=== PATIENT | male | born 1940 | race Caucasian/White ===

== ENCOUNTER 2020-08-23 11:45 | Emergency (ER) | payer MEDICARE, OTHER ==
[~2020-08-23] VITALS: Ht 175.3 cm; Wt 98.2 kg
[~2020-08-23 11:45] MED LIST: FLEC50TA PO; FURO-150 PO; METO-395 PO
[2020-08-23] MEDS ORDERED: TETanus/Pertussis (Acell)/Diphther VAC/PF (Tdap-Adult) 0.5ml syringe IMVAC ONE (12:00)
[2020-08-23] MEDS ORDERED: LIDOcaine 1% w/epiNEPHrine 1:200,000 30ml vial IJ ONE (12:00)
--- NOTE | 2020-08-23 12:23 | NUR ---
PT BACK FROM CT VIA GURNEY. PT STILL HAS C-COLLAR ON.
--- NOTE | 2020-08-23 13:32 | NUR ---
PT TAKEN TO CT VIA GURNEY BY TECH.
--- NOTE | 2020-08-23 14:00 | NUR ---
DRESSING SECURED WITH NATASHA WRAP ACROSS FOREHEAD AFTER PROVIDER SUTURING COMPLETED.
[2020-08-23] MEDS ORDERED: acetaminophen 325mg tablet PO ONE (14:05)
--- NOTE | 2020-08-23 14:26 | NUR ---
RE-APPLY C-COLLAR ORDERED BY DR LEMOS.
[2020-08-23 14:28] VITALS: BP 168/88
[2020-08-23] MEDS ORDERED: ondansetron/PF 4mg/2ml inj IV ONE (15:15)
--- NOTE | 2020-08-23 15:19 | NUR ---
REPORT CALLED TO [facility] JANINE, MERCED BURTON. ALSO NOTIFIED PT'S BEAR THAT PT IS BEING TRANSFERRED: [phone]
[2020-08-23] MEDS ORDERED: ketorolac trometh. 30mg/ml inj. IV STA (15:28)
== END 2020-08-23 15:43 | disposition short-term general hospital (02) ==
LOC: ER 11:45
DX: S02.113A Unspecified occipital condyle fracture, initial encounter for closed fracture (principal); S01.81XA Laceration without foreign body of other part of head, initial encounter; S00.83XA Contusion of other part of head, initial encounter; S09.90XA Unspecified injury of head, initial encounter; I10 Essential (primary) hypertension; Z98.890 Other specified postprocedural states; Z88.1 Allergy status to other antibiotic agents; Z88.2 Allergy status to sulfonamides; Z88.6 Allergy status to analgesic agent; Z79.899 Other long term (current) drug therapy; W18.39XA Other fall on same level, initial encounter; Z91.81 History of falling; Y93.01 Activity, walking, marching and hiking; Y92.89 Other specified places as the place of occurrence of the external cause; Y99.8 Other external cause status
CPT/HCPCS: 12011; 70450; 70486; 72125; 96374; 96375; 99285; J1885; J2405; 90715

== ENCOUNTER 2021-01-26 12:14 | Outpatient (CLI) | payer MEDICARE, OTHER ==
[2021-01-26] MEDS ORDERED: barium sulfate 450ml oral suspension ONE (15:40)
== END 2021-01-26 23:59 | disposition home or self-care (01) ==
LOC: RAD 12:14
DX: Z43.0 Encounter for attention to tracheostomy (principal); R13.12 Dysphagia, oropharyngeal phase; J96.90 Respiratory failure, unspecified, unspecified whether with hypoxia or hypercapnia
CPT/HCPCS: 74230

== ENCOUNTER 2021-05-25 12:26 | Outpatient (CLI) | payer MEDICARE, OTHER | END 2021-05-25 23:59 | disposition home or self-care (01) | LOC: RAD 12:26 | DX: R13.12 Dysphagia, oropharyngeal phase (principal) | CPT/HCPCS: 74230 ==